=== PATIENT | female | born 1985 | race Caucasian/White ===

== ENCOUNTER 2021-03-30 14:47 | Emergency (ER) | payer OTHER, SELFPAY ==
--- OUTSIDE RECORDS SUMMARY | 2021-03-30 14:49 | XMS REPORT | Continuity of Care Document ---
:1985 Author Organization [facility] t Address [address] [place] [address] [address]. [address] [place] [address] Care Team Providers Name Role Phone Unavailable Unavailable Unavailable Problems This patient has no known problems. Allergies, Adverse Reactions, Alerts This patient has no known allergies or adverse reactions. Medications This patient has no known medications. Procedures This patient has no known procedures. Results This patient has no known results.
--- NOTE | 2021-03-30 15:33 | RAD REPORT ---
EXAM DESCRIPTION: RAD - Chest Single View - 03/30/2021 3:17 pm CLINICAL HISTORY: CHEST PAIN COMPARISON: No comparisons FINDINGS: Lines: None. Lungs: No evidence of edema or pneumonia. Pleural: No significant pleural effusions or pneumothorax. Cardiac: The heart size is within normal limits. Bones: No acute fractures. Other: IMPRESSION: No acute cardiopulmonary disease.
[2021-03-30 16:39] LABS: Absolute Lymphocytes (CBC) 3.1 K/uL (0.7-4.9); Basophils % 0.8 % (0-1.3); Lymphocytes % 40.8 % (15.3-44.8); MPV 9.1 fL (7.6-11.3)
[2021-03-30 16:53] LABS: BUN Blood Urea Nitrogen 10 mg/dL (7-18); Bicarbonate 27 mmol/L (21-32); Glucose Level 85 mg/dL (74-106); Potassium 3.8 mmol/L (3.5-5.1); Sodium Level 140 mmol/L (136-145); Troponin (Emerg Dept Use Only) < 0.02 ng/mL (0.0-0.045)
--- NOTE | 2021-03-30 17:59 | RAD REPORT ---
EXAM DESCRIPTION: CT - Chest For Pe Angio - 03/30/2021 5:49 pm CLINICAL HISTORY: PAIN COMPARISON: No comparisons FINDINGS: Chest Wall: No suspicious thyroid nodules or pathologic lymphadenopathy. Lungs: No acute abnormality. Pleura: No significant effusions or pneumothorax. Mediastinum/meghna: No pathologic lymphadenopathy. Pulmonary arteries/Aorta: No filling defect identified. No aortic aneurysm. Heart: No significant pericardial effusion. Normal heart size. Upper abdomen: No acute abnormality. Bones: No acute abnormality. All CT scans are performed using dose optimization technique as appropriate and may include automate d exposure control or mA/KV adjustment according to patient size. IMPRESSION: Negative for pulmonary embolism. No acute findings in the chest.
--- NOTE | 2021-03-30 18:07 | EDPHYS ---
Physician Documentation [facility] Name: Gabrielle Torres Age: 35 yrs Sex: Female : 1985 Arrival Date: 03/30/2021 Time: 14:49 Bed 15 Private MD: ED Physician Tommie Fay HPI: 03/30 16:32 This 35 yrs old Female presents to ER via Ambulatory with complaints of kb Breathing Difficulty, Chest Pain, Back Pain. 16:32 The patient has shortness of breath at rest. Onset: The symptoms/episode began/occurred kb 4 day(s) ago, and became worse today. Duration: The symptoms are continuous. The patient's shortness of breath is aggravated by nothing, is alleviated by nothing. Associated signs and symptoms: Pertinent positives: chest pain. Severity of symptoms: At their worst the symptoms were moderate in the emergency department the symptoms are unchanged. The patient has not experienced similar symptoms in the past. The patient has not recently seen a physician. Pt reports pain in back that radiates to chest. States the pain is causing shortness of breath. . 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 - Social history:: Smoking status: Patient reports the use of cigarette tobacco products, smokes one-half pack cigarettes per day. ROS: 16:31 Constitutional: Negative for fever, chills, and weight loss. kb 16:31 Cardiovascular: Positive for chest pain, Negative for edema, orthopnea, palpitations, paroxysmal nocturnal dyspnea. 16:31 Respiratory: Positive for shortness of breath. 16:31 Back: Positive for pain with movement, of the left scapular area and right scapular area. 16:31 All other systems are negative. Exam: 16:30 Constitutional: This is a well developed, well nourished patient who is awake, alert, kb and in no acute distress. Head/Face: Normocephalic, atraumatic. ENT: Moist Mucous membranes Cardiovascular: Regular rate and rhythm with a normal S1 and S2. No gallops, murmurs, or rubs. No pulse deficits. Respiratory: Respirations even and unlabored. No increased work of breathing, no retractions or nasal flaring. Skin: Warm, dry with normal turgor. Normal color. MS/ Extremity: Pulses equal, no cyanosis. Neurovascular intact. Full, normal range of motion. Neuro: Awake and alert, GCS 15, oriented to person, place, time, and situation. Moves all extremities. Normal gait. Psych: Awake, alert, with orientation to person, place and time. Behavior, mood, and affect are within normal limits. 16:30 ECG was reviewed by the Attending Physician. Vital Signs: 14:55 BP 111 / 77; Pulse 97; Resp 18; Temp 97.9; Pulse Ox 100% on R/A; Weight 58.97 kg (R); tw2 Pain 10/10; 16:20 BP 106 / 94; Pulse 66; Resp 18; Temp 98.1; Pulse Ox 100% ; aj2 MDM: 14:52 Patient medically screened. kb 16:32 Data reviewed: vital signs, nurses notes. Data interpreted: Pulse oximetry: on room air kb is 100 %. Interpretation: normal. 18:06 Counseling: I had a detailed discussion with the patient and/or guardian regarding: the kb historical points, exam findings, and any diagnostic results supporting the discharge/admit diagnosis, lab results, radiology results, the need for outpatient follow up, a family practitioner, to return to the emergency department if symptoms worsen or persist or if there are any questions or concerns that arise at home. 03/30 15:09 Order name: CBC with Diff; Complete Time: 16:43 kb 03/30 14:57 Order name: Chest Single View XRAY; Complete Time: 15:35 kb 03/30 15:09 Order name: Basic Metabolic Panel; Complete Time: 16:55 kb 03/30 15:09 Order name: Troponin (emerg Dept Use Only); Complete Time: 16:55 kb 03/30 16:24 Order name: SARS-COV-2 RT PCR; Complete Time: 16:27 EDMS 03/30 14:57 Order name: EKG; Complete Time: 14:58 kb 03/30 14:57 Order name: EKG - Nurse/Tech; Complete Time: 15:03 kb 03/30 15:09 Order name: IV Start; Complete Time: 16:20 kb 03/30 16:57 Order name: CT Chest For PE Angio; Complete Time: 18:06 kb EC:30 Rate is 80 beats/min. Rhythm is regular. QRS [facility] is Normal. [place] interval is normal at kb 124 msec. QRS interval is normal at 86 msec. QT interval is normal at 380 msec. Administered Medications: 18:33 Drug: Ketorolac 15 mg Route: IVP; Site: right antecubital; iw 18:37 Follow up: Response: No adverse reaction iw Disposition: 03/31 04:48 Co-signature as Attending Physician, Tommie Fay MD I agree with the assessment and kdr plan of care. Disposition Summary: 03/30/21 18:07 Discharge Ordered Location: Home kb Condition: Stable kb Diagnosis - Dyspnea kb Followup: kb - With: Emergency Department - When: As needed - Reason: Worsening of condition Followup: kb - With: Private Physician - When: 2 - 3 days - Reason: Recheck today's complaints, Continuance of care, Re-evaluation by your physician Discharge Instructions: - Discharge Summary Sheet kb - Shortness of Breath, Adult, [id number] kb Forms: - Medication Reconciliation Form kb - Thank You Letter kb - Antibiotic Education kb - Prescription Opioid Use kb Prescriptions: - Cyclobenzaprine 10 mg Oral Tablet - take 1 tablet by ORAL route every 8 hours As needed; 21 tablet; Refills: 0, kb Product Selection Permitted - Diclofenac Sodium 75 mg Oral tablet,delayed release (DR/EC) - take 1 tablet by ORAL route 2 times per day As needed; 30 tablet; Refills: 0, kb Product Selection Permitted Signatures: Dispatcher [employer] EDMS Chacha Solorio, RANDY-C RANDY-Tommie Austin MD MD kdr Masha Werner, TERE RN iw Tawnya Irizarry RN RN tw2 Corrections: (The following items were deleted from the chart) 03/30 15:25 14:58 CORONAVIRUS+ ordered. [facility] EDIN
--- NOTE | 2021-03-30 18:07 | ER ---
Nurse's Notes [facility] Name: Gabrielle Torres Age: 35 yrs Sex: Female : 1985 Arrival Date: 03/30/2021 Time: 14:49 Bed 15 Private MD: Diagnosis: Dyspnea Presentation: 03/30 14:51 Chief complaint: Patient states: i am having a lot of trouble breathing. and it tw2 radiates from the back to the front of my chest. it started 4 days ago. and today it is 10 times worse and i can barely breathe. Coronavirus screen: Client presents with at least one sign or symptom that may indicate coronavirus-19. Standard/surgical mask placed on the client. Provider contacted for isolation considerations. Ebola Screen: Patient denies travel to an Ebola-affected area in the 21 days before illness onset. Initial Sepsis Screen: Does the patient meet any 2 criteria? HR > 90 bpm. No. Patient's initial sepsis screen is negative. Does the patient have a suspected source of infection? No. Patient's initial sepsis screen is negative. Risk Assessment: Do you want to hurt yourself or someone else? Patient reports no desire to harm self or others. Note provider RANDY Edwards in triage room at this time performing assessment. Onset of symptoms was March 30, 2021. 14:51 Method Of Arrival: Ambulatory tw2 14:57 Acuity: ALDAIR 3 tw2 Triage Assessment: 14:53 General: Appears in no apparent distress. slender, well groomed, Behavior is calm, tw2 cooperative, appropriate for age. Pain: Complains of pain in back and chest. Respiratory: Reports pain with respiration. Respiratory: Onset: The symptoms/episode began/occurred 4 days ago, the patient has mild shortness of breath. 16:48 General: Appears Behavior is. 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 - Social history:: Smoking status: Patient reports the use of cigarette tobacco products, smokes one-half pack cigarettes per day. Screenin:56 Abuse screen: Denies threats or abuse. Nutritional screening: No deficits noted. tw2 Tuberculosis screening: No symptoms or risk factors identified. Fall Risk None identified. Assessment: 15:03 Reassessment: COVID swab performed in Triage and sent to lab. tw2 16:20 Cardiovascular: No deficits noted. Respiratory: No deficits noted. aj2 16:52 Cardiovascular: Rhythm is. Respiratory: No deficits noted. aj2 18:37 Respiratory: Airway Respiratory effort is even, unlabored. iw Vital Signs: 14:55 BP 111 / 77; Pulse 97; Resp 18; Temp 97.9; Pulse Ox 100% on R/A; Weight 58.97 kg (R); tw2 Pain 10/10; 16:20 BP 106 / 94; Pulse 66; Resp 18; Temp 98.1; Pulse Ox 100% ; aj2 ED Course: 14:49 Patient arrived in ED. am2 14:51 Chacha Solorio FNP-C is PSYCHIATRICP. kb 14:51 Tommie Fay MD is Attending Physician. kb 14:53 Arm band placed on. tw2 14:56 EKG completed in triage. Results shown to MD. tw2 14:57 Triage completed. tw2 15:00 EKG done, by ED staff, reviewed by Tommie Fay MD. dh3 15:17 Chest Single View XRAY In Process Unspecified. EDMS 16:19 Sukhjinder Wong is Primary Nurse. aj2 16:20 No apparent distress. aj2 16:20 Patient has correct armband on for positive identification. aj2 16:20 Initial lab(s) drawn, by ga, sent to lab. Inserted saline lock: 20 gauge in right iw antecubital area, using aseptic technique. Blood collected. 16:20 No provider procedures requiring assistance completed. IV Flushed Converted IV to aj2 saline lock on right antecubital area. 17:49 CT Chest For PE Angio In Process Unspecified. EDMS 18:37 IV discontinued, intact, bleeding controlled, No redness/swelling at site. Pressure iw dressing applied. Administered Medications: 18:33 Drug: Ketorolac 15 mg Route: IVP; Site: right antecubital; iw 18:37 Follow up: Response: No adverse reaction iw Outcome: 18:07 Discharge ordered by . dakota 18:37 Discharged to home ambulatory, with family. iw 18:37 Condition: good 18:37 Discharge instructions given to patient, Instructed on discharge instructions, follow up and referral plans. medication usage, Demonstrated understanding of instructions, follow-up care, medications, Prescriptions given X 2. 18:37 Patient left the ED. iw Signatures: Dispatcher [employer] EDMS Chacha Solorio, RANDY-C RANDY-Masha Mendoza RN RN Tawnya Irizarry RN RN 2 Tana Hernandes am Emilia Corrigan 3 Sukhjinder Wong2
[2021-03-30 18:45] VITALS: O2SAT 100
[2021-03-30 18:46] VITALS: BP 106/94; TEMP 98.1
[2021-03-30] MEDS ORDERED: KETOROLAC 30 MG/ML INJ ONE (18:47)
== END 2021-03-30 18:37 | disposition home or self-care (01) ==
LOC: ER 14:47
DX: R06.00 Dyspnea, unspecified (principal); F17.210 Nicotine dependence, cigarettes, uncomplicated; Z20.822 Contact with and (suspected) exposure to COVID-19
CPT/HCPCS: 36415; 71045; 71275; 80048; 84484; 85025; 93005; 96374; 99284; Q9967; U0003

== ENCOUNTER 2021-08-22 10:08 | Emergency (ER) | payer SELFPAY ==
--- OUTSIDE RECORDS SUMMARY | 2021-08-22 10:11 | XMS REPORT | Continuity of Care Document ---
:1985 Author Organization [facility] t Address [address] [place] [address] Care Team Providers Name Role Phone Tiera CARRANZA, T Attending Clinician Unavailable Yuli Guo Attending Clinician Doctor Unassigned, Name Attending Clinician Unavailable SONA Attending Clinician Unavailable Sona ELLER Attending Clinician Payers Payer Name Policy Type Policy Number Effective Date Expiration Date S ource Problems Condition Condition Condition Status Onset Resolution Last Treating Co mments Source Name Details Category Date Date Treatment Clinician Date Tobacco Tobacco Disease Active Univers use use 12-18 ity of disorder disorder 00:00: [address] Allergies, Adverse Reactions, Alerts Allergy Allergy Status Severity Reaction(s) Onset Inactive Treating Comm ents Source Name Type Date Date Clinician NO KNOWN Drug Active Univers ALLERGIE Class ity of S [facility] Social History Social Habit Start Date Stop Date Quantity Comments Source History of Cigarette Smoker Universi ty of tobacco use [facility] Sex Assigned At Universit y of [facility] Exposure to Yes University of SARS-CoV-2 [facility] (event) [place] Tobacco use and 2018-04-14 2018-04-14 Never used Universit y of exposure 00:00:00 00:00:00 [facility] Alcohol intake 2018-04-14 2018-04-14 Current drinker Unive rsity of 00:00:00 00:00:00 of alcohol [facility] (finding) [place] Tobacco Comment 2013-12-18 2013-12-18 smokes 3 x per Unive rsity of 00:00:00 00:00:00 day [facility] Alcohol Comment 2013-12-18 2013-12-18 socially Universit y of 00:00:00 00:00:00 [facility] Smoking Status Start Date Stop Date Source Current every day smoker 2018-04-14 00:00:00 [facility] [place] [facility] Medications Ordered Filled Start Stop Current Ordering Indication Dosage Frequency Signature Comments Components Source Medication Medication Date Date Medication? Clinician (SIG) Name Name ibuprofen 2020- No 600mg 600 mg, Uni vers (IBU) 09-19 Oral, ity of tablet 600 01:30: 00:24 ONCE, 1 Josse as mg 00 :00 dose, [facility] 09/18/20 at Branch 1930, SUE ibuprofen Yes [id number] 600mg Take 1 U nivers 600 mg 2-28 tablet by ity of tablet 00:00: mouth [place] 00 every 6 Medical (six) Branch hours as needed for Pain (scale 4-6). benzonatate Yes [id number] 200mg Take 1 Univers 200 mg 2-28 capsule by ity of capsule 00:00: mouth 3 [place] (three) Medical times Branch daily as needed for Cough for up to 20 doses. ondansetron Yes [id number] 4mg Take 1 Univers (ZOFRAN 2-28 tablet by ity of ODT) 4 mg 00:00: mouth [place] disintegrat 00 every 8 Medic al ing tablet (eight) Branch hours as needed for Nausea and Vomiting (N/V). ibuprofen Yes [id number] 600mg Take 1 U nivers 600 mg 2-28 tablet by ity of tablet 00:00: mouth [place] 00 every 6 Medical (six) Branch hours as needed for Pain (scale 4-6). benzonatate Yes [id number] 200mg Take 1 Univers 200 mg 2-28 capsule by ity of capsule 00:00: mouth 3 (three) Medical times Branch daily as needed for Cough for up to 20 doses. ondansetron Yes [id number] 4mg Take 1 Univers (ZOFRAN 2-28 tablet by ity of ODT) 4 mg 00:00: mouth [place] disintegrat 00 every 8 Medic al ing tablet (eight) Branch hours as needed for Nausea and Vomiting (N/V). amoxicillin 2020- No [id number] 500mg Take 1 Univers 500 mg 2-28 - capsule by ity of capsule 00:00: 05:59 mouth 3 [place] 00 :00 (three) Medical times Branch daily for 10 days. amoxicillin 2020- No [id number] 500mg Take 1 Univers 500 mg 09-1811 capsule by ity of capsule 00:00: 05:59 mouth 3 [place] 00 :00 (three) Medical times Branch daily for 10 days. propranolol Yes propranolo Univers 10 mg 9-21 l 10 mg ity of tablet 19:16: tablet 30 Take 1 Medical tablet Branch twice a day by oral route as needed for 30 days. amitriptyli Yes amitriptyl Univers ne 100 mg 9-21 ine 100 mg ity of tablet 19:16: tablet 30 Take 1.5 Medical tablets Branch every day by oral route for 30 days. amitriptyli Yes amitriptyl Univers ne 50 mg 9-21 ine 50 mg ity of tablet 19:16: tablet [place] 30 Medical Branch propranolol Yes propranolo Univers 10 mg 9-21 l 10 mg ity of tablet 19:16: tablet 30 Take 1 Medical tablet Branch twice a day by oral route as needed for 30 days. amitriptyli Yes amitriptyl Univers ne 100 mg 9-21 ine 100 mg ity of tablet 19:16: tablet 30 Take 1.5 Medical tablets Branch every day by oral route for 30 days. amitriptyli Yes amitriptyl Univers ne 50 mg 9-21 ine 50 mg ity of tablet 19:16: tablet [place] 30 Medical Branch propranolol Yes propranolo Univers 10 mg 9-21 l 10 mg ity of tablet 19:16: tablet 30 Take 1 Medical tablet Branch twice a day by oral route as needed for 30 days. amitriptyli Yes amitriptyl Univers ne 100 mg 9-21 ine 100 mg ity of tablet 19:16: tablet 30 Take 1.5 Medical tablets Branch every day by oral route for 30 days. amitriptyli Yes amitriptyl Univers ne 50 mg 9-21 ine 50 mg ity of tablet 19:16: tablet [place] 30 Medical Branch propranolol Yes propranolo Univers 10 mg 9-21 l 10 mg ity of tablet 19:16: tablet 30 Take 1 Medical tablet Branch twice a day by oral route as needed for 30 days. amitriptyli 2018-0 Yes amitriptyl Univers ne 100 mg 04-11 ine 100 mg ity of tablet 19:16: tablet 30 Take 1.5 Medical tablets Branch every day by oral route for 30 days. amitriptyli Yes amitriptyl Univers ne 50 mg - ine 50 mg ity of tablet 19:16: tablet 30 Medical Branch amitriptyli Yes Take by Un eli ne HCl 9-21 mouth. ity of (AMITRIPTYL 19:14: [place] INE ORAL) 51 Medical Branch amitriptyli Yes Take by Un eli ne HCl 9-21 mouth. ity of (AMITRIPTYL 19:14: [place] INE ORAL) 51 Medical Branch amitriptyli Yes Take by Un eli ne HCl 9-21 mouth. ity of (AMITRIPTYL 19:14: [place] INE ORAL) 51 Medical Branch amitriptyli Yes Take by Un eli ne HCl 9-21 mouth. ity of (AMITRIPTYL 19:14: [place] INE ORAL) Medical Branch Immunizations Ordered Filled Immunization Date Status Comments [facility] e Immunization Name Name [facility] 2010-07-22 Completed [facility] 00:00:00 [facility] 2010-07-22 Completed [facility] 2010[facility]22 Completed [facility] 00:00:00 [facility] Vital Signs Vital Name Observation Time Observation Value Comments Source Systolic blood 2020-09-18 23:58:00 114 mm[facility]Hg[facility] Diastolic blood 2020-09-18 23:58:00 67 mm[Hg] [facility] Heart rate 2020-09-18 23:58:00 96 /min [facility] Body temperature 2020-09-18 23:58:00 36.72 Sandra [facility] Respiratory rate 2020-09-18 23:58:00 18 /min [facility] Body weight 2020-09-18 23:58:00 54.432 kg [facility] BMI 2020-09-18 23:58:00 21.95 kg/m2 [facility] Oxygen saturation in 2020-09-18 23:58:00 99 /min University of Arterial blood by [facility] Pulse oximetry Branch Procedures Procedure Date / Time Performed Performing Clinician Natividad e NOTICE OF PRIVACY 2020-09-18 23:51:53 Doctor Unassigned, No Univ ersity [facility] Name Medical Branch CONSENT/REFUSAL FOR 2020-09-18 23:51:04 Doctor Unassigned, [facility] AND Name Medical Branch TREATMENT Encounters Start End Encounter Admission Attending Care Care Encounter Source Date/Time Date/Time Type Type Clinicians Facility Department ID 2021-05-21 Emergency [facility] [id number] Univers 01:57:08 ity of [facility] 2020-09-19 2020-09-19 Letter ANY Mott [id number] Univers 00:00:00 00:00:00 (Out) Divina SOTO [id number] it y of HOSPITAL [id number] Josse as [id number] [facility] 019 Branch 2020-09-18 2020-09-18 Emergency Nicanor, Armida [facility] [id number] Univers 18:00:00 18:51:00 Yuli Ca [id number] i ty of [place] [id number] [facility] [id number] [facility] 084 Branch 2020-09-18 2020-09-18 Orders Doctor AGARWAL [id number] Univers 00:00:00 00:00:00 Only UnassignedBRITTANY [id number] ity of [place] [facility] [id number] Josse as [id number] [facility] 009 Branch 2020-05-05 2020-05-05 [id number] Univers 08:15:00 08:15:00 POPEYE [id number] ity o f [facility] 2020-05-05 2020-05-05 [facility] [id number] Univers 00:00:00 00:00:00 Popeye DAY CARE ATTENDANT [id number] [facility] [id number] Josse as MATERNAL [id number] [facility] ical & CHILD [address] [place] [address] Results This patient has no known results.
--- NOTE | 2021-08-22 10:31 | ER ---
Nurse's Notes [facility] Name: Gabrielle Torres Age: 35 yrs Sex: Female : 1985 Arrival Date: 08/22/2021 Time: 10:09 Bed 12 Private MD: Diagnosis: Allergic contact dermatitis, unspecified cause Presentation: 08/22 10:25 Chief complaint: Patient states: On Saturday was clearing a field and developed a rash ww on bilateral arms, hands, legs and feet, torso, butt, around mouth and eyes. Coronavirus screen: Vaccine status: Patient reports being unvaccinated. Client denies travel out of the [place] in the last 14 days. Ebola Screen: Patient negative for fever greater than or equal to 101.5 degrees Fahrenheit, and additional compatible Ebola Virus Disease symptoms Patient denies exposure to infectious person. Initial Sepsis Screen: Does the patient meet any 2 criteria? No. Patient's initial sepsis screen is negative. Does the patient have a suspected source of infection? No. Patient's initial sepsis screen is negative. Risk Assessment: Do you want to hurt yourself or someone else? Patient reports no desire to harm self or others. Onset of symptoms was August 20, 2021. 10:25 Method Of Arrival: Ambulatory ww 10:25 Acuity: ALDAIR 5 ww Triage Assessment: 10:28 General: Appears in no apparent distress. Behavior is calm, cooperative. Pain: Denies ww pain. EENT: No deficits noted. Neuro: Level of Consciousness is awake, alert, obeys commands, Oriented to person, place, time, situation, Gait is steady, Speech is normal. Cardiovascular: Denies chest pain, shortness of breath, Capillary refill < 3 seconds Chest pain is denied. Respiratory: Reports cough that is non-productive, Airway is patent Respiratory effort is even, unlabored, Respiratory pattern is regular, symmetrical, Denies shortness of breath. GI: No signs and/or symptoms were reported involving the gastrointestinal system. : No signs and/or symptoms were reported regarding the genitourinary system. Derm: Skin red rash on bilateral hands, arms, legs, feet, torso, buttock, around mouth and eyes. 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 - Social history:: Smoking status: Patient reports the use of cigarette tobacco products, smokes .3 packs per day. - Family history:: not pertinent. - Hospitalizations: : No recent hospitalization is reported. Screenin:30 Abuse screen: Denies threats or abuse. Denies injuries from another. Nutritional ww screening: No deficits noted. Tuberculosis screening: No symptoms or risk factors identified. Fall Risk None identified. Assessment: 11:00 Reassessment: Patient appears in no apparent distress at this time. ww Vital Signs: 10:25 BP 113 / 82; Pulse 87; Resp 18; Temp 98.5; Pulse Ox 100% on R/A; Weight 58.97 kg; ww Height 5 ft. 4 in. (162.56 cm); Pain 0/10; 10:25 Body Mass Index 22.31 (58.97 kg, 162.56 cm) ww ED Course: 10:09 Patient arrived in ED. as 10:20 Richard Baca MD is Attending Physician. rn 10:25 Nan Bryson RN is Primary Nurse. ww 10:28 Triage completed. ww 10:28 Arm band placed on right wrist. ww 10:30 Patient has correct armband on for positive identification. ww 11:13 No provider procedures requiring assistance completed. Patient did not have IV access ss during this emergency room visit. Administered Medications: 10:40 Drug: SOLU-Medrol (methylPREDNISolone sodium succinate) 125 mg Route: IM; Site: right ww gluteus; 11:12 Follow up: Response: No adverse reaction ss 10:40 Drug: hydrOXYzine 50 mg Route: PO; ww 11:12 Follow up: Response: No adverse reaction ss Outcome: 10:30 Discharge ordered by . rn 11:13 Discharged to home ambulatory. ss 11:13 Condition: good 11:13 Discharge instructions given to patient, Instructed on discharge instructions, follow up and referral plans. Demonstrated understanding of instructions, follow-up care. 11:15 Discharged to home ambulatory. ww 11:15 Condition: stable 11:15 Discharge instructions given to patient, Instructed on discharge instructions, follow up and referral plans. medication usage, safety practices, wound care, Demonstrated understanding of instructions, follow-up care, medications, wound care, Prescriptions given X 2. 11:16 Patient left the ED. ww Signatures: Neisha Lovett Roman, MD MD rn Smirch, Shelby, RN RN ss Wood, Whitney, RN RN joao Corrections: (The following items were deleted from the chart) 10:28 10:28 PMHx: "inflammation of heart"; ww ww
--- NOTE | 2021-08-22 10:31 | EDPHYS ---
Physician Documentation [facility] Name: Gabrielle Torres Age: 35 yrs Sex: Female : 1985 Arrival Date: 08/22/2021 Time: 10:09 Bed 12 Private MD: ED Physician Richard Baca HPI: 08/22 10:27 This 35 yrs old Female presents to ER via Unassigned with complaints of Rash - poison rn trista. 10:27 The patient's rash thought to be caused by Dermatitis. The rash is located on the body rn diffusely. The rash can be described as erythematous, urticarial, vesicular. Onset: The symptoms/episode began/occurred 2 day(s) ago. Associated signs and symptoms: Pertinent positives: itching, Pertinent negatives: difficulty breathing, fever, swelling of lips, swelling of throat, swelling of tongue. Severity of symptoms: At their worst the symptoms were moderate in the emergency department the symptoms are unchanged. The patient has experienced a previous episode. The patient has not recently seen a physician. Patient reports exposed to possible poison trista or similar 2 days ago, was handling ana, reports itching and rash. Denies shortness of breath or chest pain. Denies any oral lesions or eye lesions. No difficulty swallowing. Has not tried any Benadryl. Only putting calamine lotion on it. RN DOCUMENTATION: 10:28 LMP 07/26/2021 ww Historical: - Allergies: 10:28 No Known Allergies; ww - Home Meds: 10:28 None [Active]; ww - PSHx: 10:28 tubal ligation; ww - Immunization history:: Adult Immunizations not immunized. - Social history:: Smoking status: Patient reports the use of cigarette tobacco products, smokes .3 packs per day. - Family history:: not pertinent. - Hospitalizations: : No recent hospitalization is reported. ROS: 10:27 Constitutional: Negative for fever, chills, and weight loss, Eyes: Negative for injury, rn pain, redness, and discharge, Neck: Negative for injury, pain, and swelling, Cardiovascular: Negative for chest pain, palpitations, and edema, Respiratory: Negative for shortness of breath, wheezing, and pleuritic chest pain, Abdomen/GI: Negative for abdominal pain, nausea, vomiting, diarrhea, and constipation, Back: Negative for injury and pain, MS/Extremity: Negative for injury and deformity, Skin: Negative for injury, rash, and discoloration, Neuro: Negative for headache, weakness, numbness, tingling, and seizure. Exam: 10:27 Constitutional: This is a well developed, well nourished patient who is awake, alert, rn and in no acute distress. Head/Face: Normocephalic, atraumatic. Eyes: Pupils equal round and reactive to light, extra-ocular motions intact. Lids and lashes normal. Conjunctiva and sclera are non-icteric and not injected. Cornea within normal limits. ENT: No intraoral lesions, no stridor Cardiovascular: Regular rate and rhythm. No pulse deficits. Respiratory: Speaking full sentences, unlabored. No increased work of breathing, no retractions or nasal flaring. Skin: Diffuse urticarial/vesicular rash on torso/extremities/neck and face. No bullae. No signs of secondary infection. MS/ Extremity: Pulses equal, no cyanosis. Neuro: Awake and alert, GCS 15 Vital Signs: 10:25 BP 113 / 82; Pulse 87; Resp 18; Temp 98.5; Pulse Ox 100% on R/A; Weight 58.97 kg; ww Height 5 ft. 4 in. (162.56 cm); Pain 0/10; 10:25 Body Mass Index 22.31 (58.97 kg, 162.56 cm) ww MDM: 10:20 Patient medically screened. rn 10:27 Differential diagnosis: allergic reaction, contact dermatitis. Data reviewed: vital rn signs, nurses notes, and as a result, I will discharge patient. Counseling: I had a detailed discussion with the patient and/or guardian regarding: the historical points, exam findings, and any diagnostic results supporting the discharge/admit diagnosis, the need for outpatient follow up, to return to the emergency department if symptoms worsen or persist or if there are any questions or concerns that arise at home. Special discussion: I discussed with the patient/guardian in detail that at this point there is no indication for admission to the hospital. It is understood, however, that if the symptoms persist or worsen the patient needs to return immediately for re-evaluation. Administered Medications: 10:40 Drug: SOLU-Medrol (methylPREDNISolone sodium succinate) 125 mg Route: IM; Site: right ww gluteus; 11:12 Follow up: Response: No adverse reaction ss 10:40 Drug: hydrOXYzine 50 mg Route: PO; ww 11:12 Follow up: Response: No adverse reaction ss Disposition Summary: 08/22/21 10:30 Discharge Ordered Location: Home rn Problem: new rn Symptoms: are unchanged rn Condition: Stable rn Diagnosis - Allergic contact dermatitis, unspecified cause rn Followup: rn - With: Private Physician - When: As needed - Reason: Recheck today's complaints, Re-evaluation by your physician Discharge Instructions: - Discharge Summary Sheet rn - Contact Dermatitis rn - Poison Trista Dermatitis rn - Poison [place] Dermatitis rn Forms: - Medication Reconciliation Form rn - Thank You Letter rn - Antibiotic project intern - Prescription Opioid Use rn Prescriptions: - Hydroxyzine HCl 50 mg Oral Tablet - take 1 tablet by ORAL route every 8 hours As needed; 20 tablet; Refills: 0, rn Product Selection Permitted - Prednisone 20 mg Oral Tablet - take 1 tablet by ORAL route as directed for 10 days Take 3 tablets by mouth rn daily for 5 days, then take 2 tablets by mouth daily for 3 days, followed by 1 tablet by mouth daily for 2 days. Total of 10 days.; 23 tablet; Refills: 0, Product Selection Permitted Signatures: Richard Baca MD MD rn Wood, Whitney, RN RN ww Smirch, Shelby RN ss Corrections: (The following items were deleted from the chart) 10:28 10:28 PMHx: "inflammation of heart"; joao shepherd
[2021-08-22] MEDS ORDERED: hydrOXYzine HCL 25 MG TAB ONE (10:37)
[2021-08-22] MEDS ORDERED: METHYLPREDNISOLONE 125 MG INJ ONE (10:37)
[2021-08-22 11:39] VITALS: BP 113/82; TEMP 98.5; O2SAT 100
== END 2021-08-22 11:16 | disposition home or self-care (01) ==
LOC: ER 10:08
DX: L23.9 Allergic contact dermatitis, unspecified cause (principal); F17.210 Nicotine dependence, cigarettes, uncomplicated
CPT/HCPCS: 96372; 99283; J2930